=== PATIENT | male | born 1995 | race Caucasian/White ===

== ENCOUNTER 2016-09-05 10:56 | Emergency (ER) | payer OTHER ==
[~2016-09-05] VITALS: Ht 167.6 cm; Wt 72.0 kg
[2016-09-05] MEDS ORDERED: LORazepam 1 MG TABLET PO ONE (13:45)
[2016-09-05 14:37] VITALS: BP 112/48
== END 2016-09-05 14:55 | disposition home or self-care (01) ==
LOC: EMS 11:00
DX: F41.9 Anxiety disorder, unspecified (principal); F17.200 Nicotine dependence, unspecified, uncomplicated; F14.90 Cocaine use, unspecified, uncomplicated; F12.90 Cannabis use, unspecified, uncomplicated
CPT/HCPCS: 93005; 99283